=== PATIENT | female | born 1975 | race Two or more races ===

== ENCOUNTER 2018-08-16 08:20 | Emergency (ER) | payer BC, OTHER ==
[~2018-08-16] VITALS: Ht 165.1 cm; Wt 148.7 kg
[2018-08-16] MEDS ORDERED: INDOMETHACIN 50 MG CAPSULE ONE (09:23)
[2018-08-16] MEDS ORDERED: INDOMETHACIN 50 MG CAPSULE PO ONE (09:30)
[2018-08-16 09:48] LABS: BASOPHILS # (AUTO) 0.03 x10^3/uL (0-0.1); BASOPHILS % (AUTO) 1 % (0-1); EOSINOPHILS # (AUTO) 0.13 x10^3/uL (0-0.4); EOSINOPHILS % (AUTO) 2 % (1-7); LYMPHOCYTES # (AUTO) 1.29 x10^3/uL (1-3.4); LYMPHOCYTES % (AUTO) 19 % (22-44); MD NO; MEAN CORPUSCULAR HEMOGLOBIN 25.3 pg (27.0-34.8); MEAN CORPUSCULAR VOLUME 79.2 fL (80-100); MEAN PLATELET VOLUME 7.4 fL (7.4-10.4); MONOCYTES % (AUTO) 7 % (2-9); NEUTROPHILS # (AUTO) 5.03 x10^3/uL (1.8-6.8); NEUTROPHILS % (AUTO) 72 % (42-75); PLATELET COUNT 340 x10^3/uL (130-400); RED BLOOD COUNT 5.18 x10^6/uL (3.82-5.3); RED CELL DISTRIBUTION WIDTH 14.2 % (9.6-15.2)
[2018-08-16 09:55] VITALS: BP 133/73
[2018-08-16 09:59] LABS: ALBUMIN 3.7 g/dL (3.4-5.0); ANION GAP 5 mmol/L (5-15); CALCIUM 9.1 mg/dL (8.5-10.1); CHLORIDE 106 mmol/L (98-107)
[2018-08-16 10:00] LABS: CREATININE 0.76 mg/dL (0.55-1.02)
== END 2018-08-16 11:24 | disposition home or self-care (01) ==
LOC: ED 09:16
DX: M10.072 Idiopathic gout, left ankle and foot (principal); X50.1XXA Overexertion from prolonged static or awkward postures, initial encounter; Y93.89 Activity, other specified; Y92.009 Unspecified place in unspecified non-institutional (private) residence as the place of occurrence of the external cause; Y99.8 Other external cause status
CPT/HCPCS: 36415; 80048; 82040; 84550; 85025; 99285

== ENCOUNTER 2018-11-07 10:40 | Emergency (ER) | payer BC ==
[~2018-11-07] VITALS: Ht 165.1 cm; Wt 146.9 kg
[2018-11-07 11:04] VITALS: BP 143/81
== END 2018-11-07 12:20 | disposition home or self-care (01) ==
LOC: ED 11:10
DX: G89.11 Acute pain due to trauma (principal); M25.562 Pain in left knee; M10.9 Gout, unspecified
CPT/HCPCS: 99283

== ENCOUNTER 2021-01-08 09:53 | Emergency (ER) | payer BC ==
[~2021-01-08] VITALS: Ht 167.6 cm; Wt 130.0 kg
[2021-01-08 09:59] VITALS: BP 135/66
[2021-01-08] MEDS ORDERED: KETOROLAC 30 MG/1 ML ONE (10:21)
[2021-01-08] MEDS ORDERED: KETOROLAC 30 MG/1 ML IM ONE (10:30)
[2021-01-08 10:56] LABS: BASOPHILS % (AUTO) 1 % (0-1); EOSINOPHILS % (AUTO) 1 % (1-7); LYMPHOCYTES % (AUTO) 17 % (22-44); MEAN CORPUSCULAR HEMOGLOBIN 26.5 pg (27.0-34.8); MEAN CORPUSCULAR HGB CONC 33.6 g/dL (32.4-35.8); MEAN PLATELET VOLUME 7.4 fL (7.4-10.4); MONOCYTES % (AUTO) 11 % (2-9); NEUTROPHILS % (AUTO) 71 % (42-75); PLATELET COUNT 337 x10^3/uL (130-400); RED CELL DISTRIBUTION WIDTH 14.2 % (9.6-15.2)
[2021-01-08 11:00] LABS: MD NO
--- NOTE | 2021-01-08 11:32 | NUR ---
Pt reports pain relief after medications. Pt provided blanket, denies other needs.
[2021-01-08] MEDS ORDERED: COLCHICINE 0.6 MG CAPSULE PO ONE ×3 (12:00→14:00)
[2021-01-08] MEDS ORDERED: COLCHICINE 0.6 MG CAPSULE ONE (12:23)
== END 2021-01-08 12:36 | disposition home or self-care (01) ==
LOC: ED 10:30
DX: M79.672 Pain in left foot (principal); M79.89 Other specified soft tissue disorders
CPT/HCPCS: 36415; 73630; 84550; 85025; 96372; 99284; J1885; 99283

== ENCOUNTER 2021-01-22 09:29 | Emergency (ER) | payer BC ==
[~2021-01-22] VITALS: Ht 167.6 cm; Wt 150.0 kg
[2021-01-22 09:35] VITALS: BP 98/45
[2021-01-22] MEDS ORDERED: FLUORESCEIN/BENOXINATE 5 ML DROPS OP ONE (10:00)
[2021-01-22] MEDS ORDERED: FLUORESCEIN OPHTHALMIC 1 MG STRIP ONE (10:24)
--- NOTE | 2021-01-22 10:50 | NUR ---
CARE FOR DC ONLY. PT SITTING ON CHAIR, NO ACUTE DISTRESS NOTED. NO IV TO DC. REVIEWED DC INSTRUCTIONS WITH PT. UNDERSTANDING VERBALIZED, PT LEFT AMB, GAIT STEADY
== END 2021-01-22 10:54 | disposition home or self-care (01) ==
LOC: ED 10:49
DX: H10.12 Acute atopic conjunctivitis, left eye (principal); M10.9 Gout, unspecified
CPT/HCPCS: 99283

== ENCOUNTER 2021-01-28 06:25 | Emergency (ER) | payer BC ==
[~2021-01-28] VITALS: Ht 167.6 cm; Wt 143.6 kg
--- NOTE | 2021-01-28 06:34 | NUR ---
PT REPORTS RECEIVING FIRST COVID VAX ON SUNDAY THE . STATES SINCE THEN SHES HAD SOME SYMPTOMS OF SOB/CHILLS THAT HAVE SINCE FADED BUT THEN THIS AM WOKE UP WITH A RASH ACROSS FOREHEAD. PT STATES SHE IS UNSURE IF THIS IS RELATED. PT NAD, RESTING ON GURNEY, AMBULATED BACK TO ROOM WITH A SMOOTH AND STEADY GAIT. PLACED ON SPO2/BP MONITORING. BED IN LOWEST, RAILS ENGAGED, CALL LIGHT ON LAP, WCTM.
--- NOTE | 2021-01-28 06:43 | NUR ---
PT REPORTS RECENT USE OF HAIR DYE ON SUNDAY WELL. BEDSIDE REPORT TO [facility], PT CARE TRANSFERRED AT THIS TIME. SHAQ
[2021-01-28 06:50] VITALS: BP 134/85
--- NOTE | 2021-01-28 06:55 | NUR ---
PT MEDICATED PER EMAR. PT RESTING ON [employer] W/ CALL LIGHT IN REACH. RESP EVEN AND UNLABORED,
--- NOTE | 2021-01-28 07:52 | NUR ---
PT REPORTS RELIEF AFTER MEDS. VERBALIZED UNDERSTANDING OF DC INSTRUCTIONS. AMBULATORY W/ A STEADY GAIT TO DC DESK. RESP EVEN AND UNLABORED, NADN.
== END 2021-01-28 07:53 | disposition home or self-care (01) ==
LOC: ED 07:52
DX: L23.2 Allergic contact dermatitis due to cosmetics (principal)
CPT/HCPCS: 99283; Q0177

== ENCOUNTER 2021-01-30 08:42 | Emergency (ER) | payer BC ==
[~2021-01-30] VITALS: Ht 167.6 cm; Wt 145.5 kg
[2021-01-30 08:43] VITALS: BP 155/64
== END 2021-01-30 09:43 | disposition home or self-care (01) ==
LOC: ED 09:21
DX: L03.211 Cellulitis of face (principal); L03.213 Periorbital cellulitis
CPT/HCPCS: 99283

== ENCOUNTER 2021-04-08 14:42 | Emergency (ER) | payer BC ==
[~2021-04-08] VITALS: Ht 167.6 cm; Wt 149.7 kg
[2021-04-08 15:43] LABS: BASOPHILS % (AUTO) 1 % (0-1); EOSINOPHILS % (AUTO) 2 % (1-7); LYMPHOCYTES % (AUTO) 20 % (22-44); MEAN CORPUSCULAR HEMOGLOBIN 26.2 pg (27.0-34.8); MEAN PLATELET VOLUME 7.3 fL (7.4-10.4); MONOCYTES % (AUTO) 9 % (2-9); NEUTROPHILS % (AUTO) 69 % (42-75); PLATELET COUNT 337 x10^3/uL (130-400); RED BLOOD COUNT 4.78 x10^6/uL (3.82-5.3); RED CELL DISTRIBUTION WIDTH 14.6 % (9.6-15.2)
[2021-04-08 15:45] LABS: ALBUMIN 3.5 g/dL (3.4-5.0); ANION GAP 5 mmol/L (5-15); CALCIUM 8.5 mg/dL (8.5-10.1); CHLORIDE 107 mmol/L (98-107); CREATININE 0.87 mg/dL (0.55-1.02)
--- NOTE | 2021-04-08 17:46 | NUR ---
PT TO ROOM FROM LOBBY VIA WC.
--- NOTE | 2021-04-08 17:57 | NUR ---
VS UPDATED IN COMPUTER. RESULTS OF XR AND LABS REVIEWED WITH PT. AWAITING ERP IN TO REASSESS. WARM BLANKET PROVIDED, CALL LIGHT WITHIN REACH.
[2021-04-08] MEDS ORDERED: KETOROLAC 60 MG/2 ML ONE (18:51)
[2021-04-08] MEDS ORDERED: HYDROcodone/APAP 5/325 TABLET ONE (18:51)
[2021-04-08] MEDS ORDERED: COLCHICINE 0.6 MG CAPSULE ONE (18:52)
[2021-04-08] MEDS ORDERED: COLCHICINE 0.6 MG CAPSULE PO ONE (19:00)
[2021-04-08] MEDS ORDERED: HYDROcodone/APAP 5/325 TABLET PO ONE (19:00)
[2021-04-08] MEDS ORDERED: KETOROLAC 30 MG/1 ML IM ONE (19:00)
[2021-04-08 19:39] VITALS: BP 145/84
--- NOTE | 2021-04-08 19:40 | NUR ---
F/U AND D/C INSTRUCTIONS GIVEN TO PT AND SHE V/U. PT SENT WITH PRESCRIPTIONS FOR MEDS TOO.
== END 2021-04-08 19:41 | disposition home or self-care (01) ==
LOC: ED 17:27
DX: M10.072 Idiopathic gout, left ankle and foot (principal)
CPT/HCPCS: 36415; 73630; 80048; 82040; 84550; 85025; 96372; 99284; J1885

== ENCOUNTER 2021-04-16 19:46 | Emergency (ER) | payer BC ==
[~2021-04-16] VITALS: Ht 167.6 cm; Wt 149.3 kg
[2021-04-16] MEDS ORDERED: KETOROLAC 30 MG/1 ML IM ONE (20:30)
[2021-04-16] MEDS ORDERED: METHOCARBAMOL 750 MG TABLET PO ONE (20:30)
[2021-04-16] MEDS ORDERED: KETOROLAC 30 MG/1 ML ONE (20:43)
[2021-04-16] MEDS ORDERED: METHOCARBAMOL 750 MG TABLET ONE (20:43)
[2021-04-16 22:01] VITALS: BP 138/51
--- NOTE | 2021-04-16 22:41 | NUR ---
Patient given discharge instructions and they have confirmed that they understand the instructions. Patient ambulatory with steady gait.
== END 2021-04-16 22:52 | disposition home or self-care (01) ==
LOC: ED 22:00
DX: M54.6 Pain in thoracic spine (principal); R94.31 Abnormal electrocardiogram [ECG] [EKG]
CPT/HCPCS: 71045; 93005; 96372; 99283; J1885

== ENCOUNTER 2021-05-27 08:09 | Emergency (ER) | payer BC ==
[~2021-05-27] VITALS: Ht 167.6 cm; Wt 147.6 kg
--- NOTE | 2021-05-27 08:36 | NUR ---
FIRST CONTACT: PT HAVING RIGHT ANKLE PAIN AND SWELLING SINCE LAST NIGHT. PT DENIES ANY INJURIES, BUT HAS MEDICAL HISTORY OF GOUT. PT RESTING IN BED. VSS. RAMAN. DR. BETANCOURT EVALUATED
[2021-05-27 10:00] VITALS: BP 125/75
--- NOTE | 2021-05-27 10:01 | NUR ---
Patient given discharge instructions and they have confirmed that they understand the instructions. Patient ambulatory with steady gait. NAD, all questions answered appropriately, denies additional needs at this time. No personal belongings left in room after discharge.
== END 2021-05-27 10:07 | disposition home or self-care (01) ==
LOC: ED 08:55
DX: M10.071 Idiopathic gout, right ankle and foot (principal)
CPT/HCPCS: 99283

== ENCOUNTER 2021-06-27 10:32 | Emergency (ER) | payer BC ==
[~2021-06-27] VITALS: Ht 167.6 cm; Wt 143.8 kg
[2021-06-27 10:34] VITALS: BP 148/85
--- NOTE | 2021-06-27 11:56 | NUR ---
MANAGER UNION: PT TO ROOM FROM LOBBY
--- NOTE | 2021-06-27 12:06 | NUR ---
x-ray to room
[2021-06-27] MEDS ORDERED: KETOROLAC 60 MG/2 ML ONE (12:09)
[2021-06-27] MEDS ORDERED: KETOROLAC 30 MG/1 ML IM ONE (12:30)
== END 2021-06-27 13:26 | disposition home or self-care (01) ==
LOC: ED 10:35
DX: M75.52 Bursitis of left shoulder (principal)
CPT/HCPCS: 73030; 96372; 99283; J1885

== ENCOUNTER 2021-07-05 11:19 | Emergency (ER) | payer BC ==
[~2021-07-05] VITALS: Ht 167.6 cm; Wt 143.6 kg
[2021-07-05 12:06] VITALS: BP 133/94
--- NOTE | 2021-07-05 15:07 | NUR ---
pt educated on dc, verbalized understanding. ambulatory to dc desk with steady gait.
== END 2021-07-05 15:09 | disposition home or self-care (01) ==
LOC: ED 14:24
DX: S43.402A Unspecified sprain of left shoulder joint, initial encounter (principal); Z88.0 Allergy status to penicillin; E66.01 Morbid (severe) obesity due to excess calories; M10.9 Gout, unspecified; Z68.43 Body mass index [BMI] 50.0-59.9, adult; X58.XXXA Exposure to other specified factors, initial encounter; Y93.89 Activity, other specified; Y92.009 Unspecified place in unspecified non-institutional (private) residence as the place of occurrence of the external cause; Y99.8 Other external cause status
CPT/HCPCS: 99282